=== PATIENT | female | born 1965 | race Caucasian/White ===

== ENCOUNTER 2018-02-04 23:25 | Emergency (ER) | payer MEDICAID ==
[2018-02-04 23:35] VITALS: BP 116/65; BMI 25.8
--- NOTE | 2018-02-05 02:01 | DR.GENAD ---
HPI - PCP Primary Care Physician: [facility] - Complaint/Symptoms Chief Complaint Doctors Comments: Patient is complaining of pain all over with episode xiphoid chest pain earlier. patient states the pain is 7 of 10 in the xiphoid area when she was hurting. States she had a liver transplant in [place], [place] in 2017 and her last check up was 23 January 2018. States she was recently changed from Prednisone to Myfortic. States they were worried about her wbc. States she smokes but denies alcohol usage. she denies dysuria, hematuria, fever or chills. Chief Complaint:: "Started having pain and swelling 2 days ago which has only became worse. I don't feel good" Self Treatment fo Chief Complaint: took tylenol and benadryl at home - Nurses notes reviewed Nurses Notes Review: Yes - Source History Provided: Patient - Mode of Arrival Mode of Arrival: Ambulatory - Timing Onset of Chief Complaint: 02/04/18 Came on: Gradually - Duration Duration: Constant How lon Duration: Days - Location Location: xiphoid chest pain - Severity Severity: Moderate - Modifying Factors Worsens:: nothing Improves:: nothing PMH - PMH Past Medical History: Yes Past Medical History: Arthritis, Migraines, Liver Disease Past Surgical History: Yes Surgical History: Cholecystectomy, Hysterectomy, Organ Transplant, Other Past Surgical History Comment: Hernia repair x2, Liver transplant 10/04/2016 - Family History History of Family Medical Conditions: Yes Family Medical History: Diabetes Mellitus, Cancer, [place], Coronary Artery Disease, Hypertension - Social History Does patient currently use any type of tobacco product: Yes Have you used tobacco products in the last 12 months: Yes Type of Tobacco Use: Cigarettes Does any household member use tobacco: Yes Alcohol Use: None Do you use any recreational Drugs:: No Lives With: Alone Lives Where: Home - infectious screening In the last 2 months have you had wt loss of >10#?: NO Have you had fever, night sweats or hemotysis?: No Have you traveled outside the country in the last 6 months?: No Isolation: Standard ROS - Review of Systems Constitutional: No Symptoms Reported, Weakness, Fatigue. negative: See HPI, Chills, Diaphoresis, Fever, Malaise, Irritable, Loss of Appetite, Other Eyes: No Symptoms Reported. negative: See HPI, Eye Pain, Blurred Vision, Tearing, Discharge, Photophobia, Diplopia, Other ENTM: No Symptoms Reported Respiratoy: No Symptoms Reported. negative: See HPI, Productive Cough, Non- Productive Cough, Moist Cough, Dry Cough, Hacking Cough, Barking Cough, Brassy Cough, Orthopnea, Short of Breath, Stridor, Wheezing, Hemoptysis, Other Cardiovascular: No Symptoms Reported. negative: See HPI, Chest Pain, Edema, Palpitations, Syncope, Cyanosis, Skin Mottling, Other Gastrointestinal/Abdominal: No Symptoms Reported. negative: See HPI, Abdominal Pain, Constipation, Diarrhea, Nausea, Vomiting, Food Intolerance, Other Genitourinary: No Symptoms Reported. negative: See HPI, Discharge, Dysuria, Frequency, Hematuria, Pain, Bleeding, Other Neurological: No Symptoms Reported Musculoskeletal: No Symptoms Reported Integumentary: No Symptoms Reported Hematologic/Lymphatic: No Symptoms Reported Endocrine: No Symptoms Reported Psychiatric: No Symptoms Reported PE - Vital Signs Vitals: Temperature 97.7 F Pulse Rate 76 Respiratory Rate 18 Blood Pressure 116/65 O2 Sat by Pulse Oximetry 98 - General Limitations: No Limitations General Appearance: Alert, In No Apparent Distress - Head Head Exam: Normal Inspection, Atraumatic, Normocephalic - Eyes Eye exam: Normal Appearance, PERRL, EOMI. negative: Scleral Icterus, Conjunctival Injection, Nystagmus, Miosis, Mydrasis, Periorbital Swelling, Periorbital Tenderness, Other - ENT ENT Exam: Normal Exam, Normal Oropharynx, Normal External Ear Exam, Mucous Membranes Moist, TM's Normal Bilaterally External Ear Exam: Normal External Inspection TM/Canal Exam: Bilateral Normal Nose Exam: Normal Nose Exam Mouth Exam: Normal Inspection. negative: Drooling, Trismus, Lip Swelling, Tongue Elevation, Tongue Swelling, Laceration, Other Throat Exam: Normal Inspection - Neck Neck Exam: Normal Inspection, Full ROM, Trachea Midline. negative: Tenderness, Meningismus, Lymphadenopathy, Thyromegaly, Other - Chest Chest Inspection: Normal Inspection, Symmetric Chest Wall Rise - Respiratory Respiratory Exam: Normal Lung Sounds Bilat Respiratory Exam: Bilateral Clear to Auscultation - Cardiovascular Cardiovascular Exam: Regular Rate, Normal Rhythm, Normal Heart Sounds - Abdominal Exam Abdominal Exam: Normal Inspection, Normal Bowel Sounds, Soft Abdominal Tenderness: negative: RUQ, RLQ, LUQ, LLQ, Epigastrium, Suprapubic, Diffuse, Mild, Moderate, Severe, Other - Extremities Extremities Exam: Normal Inspection, Full ROM, Normal Capillary Refill. negative: Tenderness, Edema, Joint Swelling, Calf Tenderness, Other - Back Back Exam: Normal Inspection, Full ROM - Neurologic Neurological Exam: Alert, Oriented X3, CN II-XII Intact, Reflexes Normal. negative: Normal Gait (gait not tested) - Psychiatric Psychiatric Exam: Normal Affect, Normal Mood - Skin Skin Exam: Warm, Dry, Intact, Normal Color. negative: Rash, Cyanosis, Diaphoresis, Erythema, Pallor, Mottled, Other ROR - Labs Reviewed Laboratory Results Reviewed?: Yes (all labs and x-ray results reviewed and discussed with patient and spouse) Result Diagrams: 02/05/18 01:59 02/05/18 01:59 Laboratory: WBC 8.7 X10^3/uL (3.6-10.0) 02/05/18 01:59 RBC 3.82 X10^6/uL (3.5-5.4) 02/05/18 01:59 Hgb 11.9 g/dL (12.0-16.0) L 02/05/18 01:59 Hct 34.6 % (36.0-47.0) L 02/05/18 01:59 MCV 90.6 fL (80.0-100.0) 02/05/18 01:59 MCH 31.2 pg (27.0-34.0) 02/05/18 01:59 MCHC 34.5 g/dL (33.0-35.0) 02/05/18 01:59 RDW 15.2 % (11.6-16.5) 02/05/18 01:59 Plt Count 146 X10^3/uL (150.0-450.0) L 02/05/18 01:59 MPV 8.2 fL (7.4-11.0) 02/05/18 01:59 Neut % (Auto) 64.0 % (42.0-75.0) 02/05/18 01:59 Lymph % (Auto) 26.0 % (21.0-51.0) 02/05/18 01:59 Branch % (Auto) 8.8 % (0.0-13.0) 02/05/18 01:59 Eos % (Auto) 0.8 % (0.9-2.9) L 02/05/18 01:59 Baso % (Auto) 0.4 % (0.2-1.0) 02/05/18 01:59 Neut # (Auto) 5.6 x10^3/uL (2.2-4.8) H 02/05/18 01:59 Lymph # (Auto) 2.3 X10^3/uL (1.3-2.9) 02/05/18 01:59 Branch # (Auto) 0.8 x10^3/uL (0.3-0.8) 02/05/18 01:59 Eos # (Auto) 0.1 x10^3/uL (0.0-0.2) 02/05/18 01:59 Baso # (Auto) 0.0 X10^3/uL (0.0-0.1) 02/05/18 01:59 Absolute Nucleated RBC 0.0 /100WBC 02/05/18 01:59 INR Target Range - 02/05/18 01:59 INR 0.97 (0.8-1.3) 02/05/18 01:59 APTT 33.9 SECONDS (22.9-36.5) 02/05/18 01:59 PTT Comment - 02/05/18 01:59 Sodium 139 mmol/L (136-145) 02/05/18 01:59 Corrected Sodium TNP 02/05/18 01:59 Potassium 4.0 mmol/L (3.5-5.1) 02/05/18 01:59 Chloride 103 mmol/L (98-107) 02/05/18 01:59 Carbon Dioxide 27.8 mmol/L (21-32) 02/05/18 01:59 BUN 19 mg/dL (7-18) H 02/05/18 01:59 Creatinine 1.16 mg/dL (0.55-1.02) H 02/05/18 01:59 Est GFR (MDRD) Af Amer > 60 (>60) 02/05/18 01:59 Est GFR (MDRD) Non-Af 52 (>60) L 02/05/18 01:59 Glucose 91 mg/dL (65-99) 02/05/18 01:59 Calcium 9.0 mg/dL (8.5-10.1) 02/05/18 01:59 Corrected Calcium TNP 02/05/18 01:59 Magnesium 1.5 mg/dL (1.7-2.9) L 02/05/18 01:59 Total Bilirubin 0.60 mg/dL (0.2-1.0) 02/05/18 01:59 AST 40 Units/L (15-37) H 02/05/18 01:59 ALT 62 Units/L (12-78) 02/05/18 01:59 Alkaline Phosphatase 120 Units/L (46-116) H 02/05/18 01:59 Creatine Kinase 147 Units/L (26-192) 02/05/18 01:59 CK-MB (CK-2) < 1.0 ng/mL (0-4.0) 02/05/18 01:59 CK/CKMB % Calc 0.7 % (<4) 02/05/18 01:59 Troponin I < 0.02 ng/mL (0-1.5) 02/05/18 01:59 Total Protein 7.4 g/dL (6.4-8.2) 02/05/18 01:59 Albumin 3.6 g/dL (3.4-5.0) 02/05/18 01:59 Globulin 3.8 g/dL (2.5-4.5) 02/05/18 01:59 Albumin/Globulin Ratio 0.9 Ratio (1.1-2.1) L 02/05/18 01:59 Amylase 52 Units/L (25-115) 02/05/18 01:59 Lipase 190 Units/L (73-393) 02/05/18 01:59 - XRAY XRAY Interpreted by: Radiologist (CXR: Prominent heart size borderline COPD without acute abnormality) - EKG Rate: 75 [place]: Normal Rhythm: NSR Block: None Hypertrophy: None ST: Nonsp - Diagnosis Discharge Problem: Liver transplant recipient Chest pain Qualifiers: Chest pain type: unspecified Qualified Code(s): R07.9 - Chest pain, unspecified - Discharge Plan Disposition: HOME, SELF-CARE Condition: Stable - Follow ups/Referrals Follow ups/Referrals: NFD,None [Primary Care Provider] - 3 days - Instructions Instructions: Chronic Obstructive Pulmonary Disease, Hyperglycemia, Easy-to- Read, Nonspecific Chest Pain, [id number]
[2018-02-05 02:10] LABS: BASOPHILS % (AUTO) 0.4 % (0.2-1.0); EOSINOPHILS # (AUTO) 0.1 x10^3/uL (0.0-0.2); EOSINOPHILS % (AUTO) 0.8 % (0.9-2.9); HEMATOCRIT 34.6 % (36.0-47.0); HEMOGLOBIN 11.9 g/dL (12.0-16.0); LYMPHOCYTES # (AUTO) 2.3 X10^3/uL (1.3-2.9); MEAN CORPUSCULAR HEMOGLOBIN 31.2 pg (27.0-34.0); MEAN CORPUSCULAR HGB CONC 34.5 g/dL (33.0-35.0); MEAN CORPUSCULAR VOLUME 90.6 fL (80.0-100.0); MEAN PLATELET VOLUME 8.2 fL (7.4-11.0); MONOCYTES # (AUTO) 0.8 x10^3/uL (0.3-0.8); MONOCYTES % (AUTO) 8.8 % (0.0-13.0); NEUTROPHILS # (AUTO) 5.6 x10^3/uL (2.2-4.8); PLATELET COUNT 146 X10^3/uL (150.0-450.0); RED BLOOD COUNT 3.82 X10^6/uL (3.5-5.4); RED CELL DISTRIBUTION WIDTH 15.2 % (11.6-16.5); WHITE BLOOD COUNT 8.7 X10^3/uL (3.6-10.0)
[2018-02-05 02:27] LABS: BLOOD UREA NITROGEN 19 mg/dL (7-18); CARBON DIOXIDE 27.8 mmol/L (21-32); CHLORIDE 103 mmol/L (98-107); CREATININE 1.16 mg/dL (0.55-1.02); SODIUM 139 mmol/L (136-145); TROPONIN I < 0.02 ng/mL (0-1.5); eGFR BLACK RACES > 60 (>60); eGFR NON BLACK RACES 52 (>60)
--- NOTE | 2018-02-05 02:28 | RAD ---
Chest AP portable Indication: Pain and swelling 2 days prior. Findings: There is no pneumothorax or effusion. Heart size is prominent. Lungs are hyperinflated. Cer vical spine hardware noted. No overt edema seen. Impression: Prominent heart size borderline COPD without other acute abnormality Reported By:
[2018-02-05 02:33] LABS: ALANINE AMINOTRANSFERASE 62 Units/L (12-78); ALBUMIN 3.6 g/dL (3.4-5.0); ALKALINE PHOSPHATASE 120 Units/L (46-116); AMYLASE 52 Units/L (25-115); ASPARTATE AMINO TRANSFERASE 40 Units/L (15-37); CKMB % 0.7 % (<4); CREATINE KINASE 147 Units/L (26-192); CREATINE KINASE MB < 1.0 ng/mL (0-4.0); LIPASE 190 Units/L (73-393); MAGNESIUM 1.5 mg/dL (1.7-2.9); TOTAL PROTEIN 7.4 g/dL (6.4-8.2)
== END 2018-02-05 03:40 | disposition home or self-care (01) ==
LOC: ER 23:25
DX: R07.89 Other chest pain (principal); Z94.4 Liver transplant status
CPT/HCPCS: 36415; 71045; 80053; 82150; 82550; 82553; 83690; 83735; 84484; 85025; 85610; 85730; 93005; 93010; 99283